=== PATIENT | female | born 1935 | race Caucasian/White ===

== ENCOUNTER 2019-07-05 15:42 | Emergency (ER) | payer OTHER ==
[~2019-07-05] VITALS: Ht 167.6 cm; Wt 99.8 kg
[2019-07-05] MEDS ORDERED: SODIUM CHLORIDE 0.9% 1,000 ML IV ONE ×2 (15:58)
[2019-07-05] MEDS ORDERED: LEVOFLOXACIN 500MG 100 ML IV ONE (16:00)
[2019-07-05 16:26] LABS: Eosinophils # (auto) 0 uL; Eosinophils % (auto) 0.3 % (0.0-7.0); Lymphocytes # (auto) 1.2 uL; Monocytes # (auto) 0.5 uL
[2019-07-05 16:28] LABS: Basophils # (auto) 0.1 uL; Basophils % (auto) 0.6 % (0.0-2.0); Hematocrit 45.8 % (36.0-46.0); Mean Corpuscular Hemoglobin 25.9 pg (28.0-32.0); Mean Corpuscular Hgb Conc. 32.8 g/dL (32.0-36.0); Monocytes % (auto) 4.9 % (0.0-12.0); Neutrophils # (auto) 8.5 uL; Neutrophils % (auto) 82.2 % (37.0-80.0); Platelet Count (auto) 291 10^3/uL (140-450); Red Cell Distribution Width 17.2 % (11.8-14.3); White Blood Cell 10.4 10^3/uL (4.4-10.8)
[2019-07-05 16:43] LABS: INR 0.99 (0.9-1.15); Partial Thromboplastin Time 26.2 sec (23.64-32.05)
[2019-07-05 16:46] LABS: Alanine Aminotransferase 21 U/L (13-56); Albumin 3.8 g/dL (3.4-5.0); Anion Gap 10 (5-15); Aspartate Aminotransferase 16 U/L (15-37); BUN/Creatinine Ratio 18.8; Blood Urea Nitrogen 12 mg/dL (7-18); Calcium 9.2 mg/dL (8.5-10.1); Carbon Dioxide 25 mmol/L (21-32); Chloride 97 mmol/L (98-107); GFR African American 114 mL/min; GFR Non-African American 94 mL/min; Glucose 131 mg/dL (74-106); Potassium 3.9 mmol/L (3.5-5.1); Sodium 132 mmol/L (136-145)
[2019-07-05 16:49] LABS: Alkaline Phosphatase 95 U/L (45-117); Bilirubin, Total 0.4 mg/dL (0.2-1.0); Total Protein 8.1 g/dL (6.4-8.2)
[2019-07-05 17:00] LABS: Urine Bacteria FEW /hpf (None Seen); Urine Blood Negative /uL (Negative); Urine Mucus FEW (None Seen); Urine Specific Gravity 1.016 (1.001-1.035); Urine WBC 40 /hpf (0 - 5)
[2019-07-05] MEDS ORDERED: PROMETHAZINE HCL 25 MG/ML 1ML IV ONE (17:30)
[2019-07-05] MEDS ORDERED: MORPHINE SULFATE 4 MG/ML SYR/VIAL IV ONE (17:30)
[2019-07-05 20:52] VITALS: BP 176/89
== END 2019-07-05 21:18 | disposition short-term general hospital (02) ==
LOC: EDBD 15:42 → ER 15:42
DX: I11.0 Hypertensive heart disease with heart failure (principal); I50.9 Heart failure, unspecified; N39.0 Urinary tract infection, site not specified; M19.90 Unspecified osteoarthritis, unspecified site; Z88.0 Allergy status to penicillin; Z88.2 Allergy status to sulfonamides; Z88.1 Allergy status to other antibiotic agents; Z90.49 Acquired absence of other specified parts of digestive tract; Z90.710 Acquired absence of both cervix and uterus; Z90.89 Acquired absence of other organs
CPT/HCPCS: 36415; 51702; 71045; 80053; 81001; 83605; 83880; 84484; 85025; 85610; 85730; 87040; 87086; 93970; 96365; 96366; 96375; 99285; J1956; J2270; J2550; J7030